=== PATIENT | male | born 1985 | race African-American/Black ===

== ENCOUNTER 2017-12-27 14:12 | Emergency (ER) | payer SELFPAY ==
[2017-12-27 15:57] LABS: ADD MAN DIFF? NO
[2017-12-27 16:02] LABS: BASO # 0.1 x10^3/uL (0.0-0.2); BASO % 1 % (0-3); EOS # 0.2 x10^3/uL (0.0-0.7); EOS % 2 % (0-3); HEMATOCRIT 44.5 % (39.0-53.0); HEMOGLOBIN 14.8 g/dL (13.0-17.5); LYMPH % 22 % (24-48); MEAN CORPUSCULAR HEMOGLOBIN 31 pg (25-35); MEAN CORPUSCULAR HGB CONC 33 g/dL (31-37); MEAN CORPUSCULAR VOLUME 92 fL (79-100); MONO # 0.8 x10^3/uL (0.0-1.1); MONO % 8 % (0-9); NEUT # 6.1 x10^3uL (1.8-7.7); NEUT % 67 % (31-73); PLATELET COUNT 291 x10^3/uL (140-400); RED BLOOD COUNT 4.83 x10^6/uL (4.30-5.70); RED CELL DISTRIBUTION WIDTH 14.1 % (11.5-14.5)
[2017-12-27] MEDS: LIDO:MAALOX:DONNATAL 1:1:1 15 ML SINGLE DOSE SWSW (16:04)
[2017-12-27] MEDS: ONDANSETRON PF 4 MG/2 ML VIAL. IV (16:04)
[2017-12-27] MEDS: FAMOTIDINE 20 MG TABLET. PO (16:04)
[2017-12-27] MEDS: PANTOPRAZOLE IV PUSH 40 MG VIAL. IVP (16:05)
[2017-12-27 16:09] LABS: ANION GAP 7 (6-14); BLOOD UREA NITROGEN 12 mg/dL (8-26); BUN/CREATININE RATIO 9 (6-20); CALCIUM 9.1 mg/dL (8.5-10.1); CARBON DIOXIDE 31 mmol/L (21-32); CHLORIDE 100 mmol/L (98-107); CREATININE 1.3 mg/dL (0.7-1.3); GFR 76.5; GLUCOSE 96 mg/dL (70-99); POTASSIUM 3.9 mmol/L (3.5-5.1); SODIUM 138 mmol/L (136-145)
[2017-12-27 16:14] LABS: ALBUMIN 3.7 g/dL (3.4-5.0); ALK PHOS 64 U/L (46-116); ALT (SGPT) 26 U/L (16-63); AST (SGOT) 14 U/L (15-37); LIPASE 170 U/L (73-393); TOTAL BILIRUBIN 0.3 mg/dL (0.2-1.0); TOTAL PROTEIN 7.3 g/dL (6.4-8.2)
== END 2017-12-27 17:25 | disposition home or self-care (01) ==
LOC: ER 14:12
DX: R10.13 Epigastric pain (principal); R11.0 Nausea; R20.8 Other disturbances of skin sensation; K21.9 Gastro-esophageal reflux disease without esophagitis
CPT/HCPCS: 36415; 80053; 83690; 85025; 96374; 96375; 99284-25; C9113; J2405